=== PATIENT | male | born 1990 | race Caucasian/White ===

== ENCOUNTER 2019-03-22 21:29 | Inpatient (IN) | payer OTHER ==
[~2019-03-22] VITALS: Ht 170.2 cm; Wt 98.0 kg
[2019-03-22 21:40] VITALS: BP 164/98
[2019-03-22 21:56] LABS: ABSOLUTE BASOPHILS 0.1 thou/uL (0.0-0.2); ABSOLUTE EOSINOPHILS 0.1 thou/uL (0.0-0.7); ABSOLUTE LYMPHOCYTES 2.9 thou/uL (0.8-5.3); ABSOLUTE MONOCYTES 0.7 thou/uL (0.0-1.2); ABSOLUTE NEUTROPHILS 3.7 thou/uL (1.6-8.1); EOSINOPHILS 1.8 %; HEMATOCRIT 41.2 % (42.0-52.0); HEMOGLOBIN 13.9 gm/dL (14.0-18.0); LYMPHOCYTES 38.8 %; MCH 30.7 pg (26.0-34.0); MCHC 33.6 g/dL (28.0-37.0); MCV 91.3 fL (80.0-100.0); MONOCYTES 8.9 %; MPV 7.8 fl. (7.2-11.1); NUCLEATED RBCS 0 /100WBC; PLATELET COUNT* 304 thou/uL (150-400); POLYS 49.5 %; RBC 4.52 mil/uL (4.50-6.00); RDW-CV 14.1 % (10.5-14.5); WBC 7.6 thou/uL (4.0-11.0)
[2019-03-22 22:05] LABS: PROTIME 9.9 Seconds (9.20-11.50)
[2019-03-22 22:12] LABS: ALBUMIN 3.7 g/dL (3.4-5.0); ALKALINE PHOSPHATASE 85 U/L (46-116); ANION GAP 18 mmol/L (7-16); BUN 17 mg/dL (7-18); CHLORIDE 105 mmol/L (98-107); CO2 19 mmol/L (21-32); CREATININE 1.2 mg/dL (0.6-1.3); GLUCOSE 188 mg/dL (70-99); POTASSIUM 3.3 mmol/L (3.5-5.1); SGOT 26 U/L (15-37); SGPT 29 U/L (30-65); SODIUM 142 mmol/L (136-145); TOTAL BILIRUBIN 0.1 mg/dL (<0.1-1.0); TOTAL PROTEIN 6.8 g/dL (6.4-8.2); TROPONIN-I LEVEL <0.06 ng/mL (<0.06)
--- NOTE | 2019-03-22 22:39 | NUR ---
PATIENT INTUBATED AT 2129 PATIENTS RESPIRATORY STATUS GREATLY IMPROVED WITH INTUBATION. ALERT AND ORIENTED IN CT. RESTRAINTS REMOVED AT 2219 EXTUBATED AT 2229
[2019-03-22 22:43] LABS: URINE BILIRUBIN NEGATIVE (Negative); URINE BLOOD NEGATIVE (Negative); URINE CLARITY CLEAR; URINE COLOR YELLOW; URINE GLUCOSE-RANDOM NEGATIVE (Negative); URINE KETONES NEGATIVE (Negative); URINE LEUKOCYTES-REFLEX NEGATIVE (Negative); URINE NITRITE-REFLEX NEGATIVE (Negative); URINE PROTEIN TRACE (Negative); URINE UROBILINOGEN 0.2 E.U./dl (0.2-1.0)
[2019-03-22 22:49] LABS: AMP/METHAMP Negative (Negative); BARBITURATES Negative (Negative); BENZODIAZEPINES POSITIVE (Negative); COCAINE Negative (Negative); METHADONE Negative (Negative); OPIATES Negative (Negative); PCP Negative (Negative); THC Negative (Negative)
--- NOTE | 2019-03-22 23:37 | NUR ---
PATIENTS' FAMILY AT BEDSIDE.
[2019-03-23] VITALS (10 sets, daily range): BP systolic 108–139; BP diastolic 59–84
--- NOTE | 2019-03-23 06:21 | NUR ---
PATIENT TO ICU ROOM 1 AT 0130. SPO2 >95% ON 4L PER NC. SLEEPING SINCE ARRIVAL, NO UOP, NO BM. DENIES SOB. REPORTS HE HAS HAD A SIMILAR INCIDENT BEGINNING OF THIS YEAR WHERE HIS FRIEND FOUND HIM BREATHING VERY SHALLOW AND CALLED 911. AFEBRILE, HR 55-75, LOWEST RR 5-6 BUT DOES NOT SUSTAIN. ABLE TO TURN SELF IN BED. CALL LIGHT WITHIN REACH.
--- NOTE | 2019-03-23 08:45 | NUR ---
1033 ASSUMED CARE OF PATIENT. PLEASE SEE DOCUMENTED ASSESSMENT.PT IS TELE STATUS IN THE ICU. PATIENT WANTS TO GO HOME. DISCUSSED GOALS.
--- NOTE | 2019-03-23 10:52 | NUR ---
SEEN BY DR AGUILAR WHO DOES NOT WANT TO DISCHARGE PATIENT AT THIS TIME. PATIENT IS ON ROOM AIR AND WILL DESAT TO 88-89% IF ON HIS BACK. TO RADIOLOGY PER WHEELCHAIR FOR CHEST FILM
--- NOTE | 2019-03-23 14:25 | NUR ---
PATIENT TO MOVE TO ROOM 224
--- NOTE | 2019-03-23 14:36 | NUR ---
REPORT TO ALON WALKER ON TELEMETRY.
--- NOTE | 2019-03-23 15:42 | NUR ---
REPORT TO GENESIS WALKER. PATIENT NOW TO TRANSFER TO ROOM 215
--- NOTE | 2019-03-23 16:00 | NUR ---
SPOKE WITH PT.THIS AM WHEN HE WAS IN ICU. HE WAS CONCERNED,STATING HE THINKS HIS NEW INSURANCE SHOULD BE IN EFFECTIVE THIS WEEK. HE WAS WONDERING IF CM COULD FIND OUT. HE THINKS IT'S [facility]. HE IS EMPLOYED BY [employer] IN [place]. EXPLAINED BEING A MONDAY IT MAY BE DIFFICULT TO FIND ANYTHING OUT,BUT I WOULD ATTEMPT. [employer] [phone] CLOSED UNTIL MONDAY. TITLE I TEACHER RN LINE AT [facility]-LEFT FOR TITLE I TEACHER TO CALL CM TO SEE IF SHE COULD LOOK UP BY SS# RN NEVER CALLED CM BACK. ADMITTING CAN ATTEMPT ON MONDAY. GAVE DENISE SCHMID ON 2W THIS INFORMATION AND SHE WILL RELAY TO PT.
--- NOTE | 2019-03-23 16:14 | NUR ---
1600 transferred to room 215 per wheelchair with all records and belongings
--- NOTE | 2019-03-23 19:34 | NUR ---
I ASSUMED CARE OF THE PATIENT A TRANSFER FROM THE ICU. HE IS ALERT AND ORIENTED X4 AND IS UP AD [place]. HE IS ON ROOM AIR AND DOES NOT COMPLAIN OF PAIN. HOURLY ROUNDING IS COMPLETED AND PATIENT NEEDS ARE MET. BED IS IN THE LOW LOCKED POSITION AND CALL LIGHT IS IN REACH. MAG WAS REPLACED AND IS WITHIN NORMAL RANGE. WILL CONTINUE TO MONITOR.
[2019-03-24] VITALS: BP 124/73
[2019-03-24 04:00] VITALS: BP 120/70
--- NOTE | 2019-03-24 06:30 | NUR ---
PATIENT PROGRESSING TOWARDS GOALS: O2 SATURATION MAINTAINED ON ROOM AIR. HEADACHE RELIEVED WITH PRN TYLENOL AND QUIET/DARK ENVIRONMENT. PATIENT'S MOTHER AT BEDSIDE THROUGHOUT SHIFT. PATIENT EAGER TO DISCHARGE HOME TODAY. PENDING CHEST XRAY FOR STATUS OF ASPIRATION PNEUMONIA. PATIENT VERBALIZES UNDERSTANDING. CALL LIGHT WITHIN REACH
[2019-03-24] MEDS ORDERED: PROTONIX40 M1 PO (07:03)
[2019-03-24] MEDS ORDERED: TYLENOL325 MG PO (07:16)
[2019-03-24 08:30] VITALS: BP 131/77
[2019-03-24] MEDS ORDERED: AUGMENTIN 875-1 EACH PO (09:35)
[2019-03-24 09:38] VITALS: BP 120/70
--- NOTE | 2019-03-24 10:30 | CON ---
[address] [address] CONSULTATION Name: KATERINCLINTRomeoSHANEKA Room: [address] IN .R.#: [id number] Admission: 03/22/19 Attend Phys: Jason Garcia MD Discharge: Date of : 89 Report #: [id number] THIS REPORT FOR: //name// CC: Jason Garcia [facility] physician/PCP REASON FOR CONSULTATION: Acute hypoxic respiratory failure, altered mental status. HISTORY OF PRESENT ILLNESS: He is a 28-year-old gentleman who was admitted to the Emergency Room with unresponsiveness. The patient was brought by a coworker. He was drinking alcohol and took some Xanax yesterday. The patient fell asleep, was unresponsive. He was snoring and his roommate describes that he has breathing pauses per family. When the patient came to the ED, he was intubated, subsequently was extubated, now not in distress; however, when he is sleeping, he is desaturating. He has a history of snoring, daytime sleepiness more significant. His tox screen is positive for benzodiazepine. PAST MEDICAL HISTORY: Acute respiratory failure in the past similar episode, apnea. MEDICATIONS: Noted. PAST MEDICAL HISTORY: As above. Family described postnasal drainage. asthma as a child. FAMILY HISTORY: No significant family history. SOCIAL HISTORY: He is smoking half pack per day for 12 years. Drinking alcohol weekly, up to 6 beers. REVIEW OF SYSTEMS: As above, 14-point include postnasal drainage, previous history of asthma, snoring, daytime sleepiness, otherwise unremarkable. PHYSICAL EXAMINATION: GENERAL: The patient is pleasant, not in distress, sleepy. He is on room air, oxygen saturation 94%. VITAL SIGNS: Temperature is 36.6, pulse is 63, blood pressure was 121/84. HEAD AND NECK: Neck supple. Oral mucosa clear. CHEST: Clear to auscultation. CARDIOVASCULAR: Regular rhythm. ABDOMEN: Soft, nontender. EXTREMITIES: No edema. Pulses equal. LABORATORY DATA: Chest x-ray, which I have reviewed, showed minimal perihilar infiltrate. However, the patient had right mainstem intubation. Recommend [place] [address] CONSULTATION Name: SHANEKA JOHNSON Angelica Room: [address]#: [id number] Admission: 03/22/19 Attend Phys: Jason Garcia MD Discharge: Date of : 89 Report #: [id number] ASSESSMENT AND PLAN: 1. Unresponsiveness, suspect related to overdose with alcohol and background of obstructive sleep apnea, daytime sleepiness, at this time has resolved. 2. Hypoxemia, worse when he is sleeping, suspect obstructive sleep apnea. At this time, chest x-ray had right mainstem intubation with infiltrate. Suspect possible aspiration. Recommend to add antibiotic with Unasyn and to go home with Augmentin, however, need to repeat chest x-ray. Recommend to observe the patient for 24 hours. 3. Altered mental status. We will defer to primary. Evaluation as above. Will benefit from sleep study as above. <ELECTRONICALLY SIGNED> By: Torbiio Castillo MD 03/24/19 1030 [id number] Castillo MD /nt
--- NOTE | 2019-03-24 11:12 | NUR ---
03/24: Patient discharged. Discharge instructions went over with patient. Medications discussed, handout given. All questions answered. Mother at bedside. Patient left in stable condition. Escorted by staff to private vehicle.
== END 2019-03-24 10:35 | disposition home or self-care (01) | DRG 177 ==
LOC: EDBD 21:29 → M.ERS 21:29 → M.TBA-ER 23:01 → M.ICU 03-23 01:05 → M.2W 03-23 16:11
PROVIDERS: Personal Emergency Response Attendant; ADMIT Internal Medicine
PROC: 0BH17EZ Insertion of Endotracheal Airway into Trachea, Via Natural or Artificial Opening (ICD-10-PCS; principal; 2019-03-22)
DX: J69.0 Pneumonitis due to inhalation of food and vomit (principal); J96.01 Acute respiratory failure with hypoxia; F17.210 Nicotine dependence, cigarettes, uncomplicated; E87.6 Hypokalemia; F10.10 Alcohol abuse, uncomplicated; F13.10 Sedative, hypnotic or anxiolytic abuse, uncomplicated